=== PATIENT | female | born 1965 | race Caucasian/White ===

== ENCOUNTER 2017-01-13 07:08 | Day surgery (SDC) | payer BC ==
[2017-01-12 10:00] VITALS: BMI 28.3
[~2017-01-13 07:08] MED LIST: DEXAMETHASONE SOD PHOSPHATE 10 MG/ML 1 ML VIAL IV ONE; DEXAMETHASONE SOD PHOSPHATE 4 MG/ML 1 ML VIAL IV ONE; FAMOTIDINE 20 MG/2 ML VIAL IV ONE; HYDROmorphone 1 MG/ML 1 ML SYRINGE IVP PRN; LACTATED RINGERS 1,000 ML IV SCH; ONDANSETRON 4 MG/2 ML VIAL IVP ONE; ceFAZolin 2 GM in SODIUM CHLORIDE 0.9% 100 ML IVPB ONE
[2017-01-13 07:38] VITALS: RESP 16
[2017-01-13] MEDS: OXYMETAZOLINE 0.05% NASL SPRAY 1 SPRAY BOTTLE NASAL ONE ×5 (07:44→08:04)
[2017-01-13] MEDS ORDERED: LIDOCAINE 1% 20 ML VIAL (10MG/ML) FOR IV START INTRADERMA ONE (07:44)
[2017-01-13] MEDS ORDERED: PROPOFOL 10 MG/ML 20 ML VIAL IV ONE (08:23)
[2017-01-13] MEDS ORDERED: SUCCINYLCHOLINE CHLORIDE 100 MG/5 ML SYR IV ONE (08:23)
[2017-01-13] MEDS ORDERED: LIDOCAINE 1% INJ 10MG/ML (20 ML MDV) ONE (08:23)
[2017-01-13] MEDS ORDERED: fentaNYL (PF) 50 MCG/ML 2 ML AMP ONE (08:23)
[2017-01-13] MEDS ORDERED: DEXAMETHASONE SOD PHOS (MDV) 100 MG/10 ML VIAL ONE (08:23)
[2017-01-13] MEDS ORDERED: MIDAZOLAM 2 MG/2 ML VIAL ONE (08:23)
[2017-01-13] MEDS ORDERED: EPINEPHrine 1 MG/ML 1 ML AMP IRRIGATION ONE (08:33)
[2017-01-13] MEDS ORDERED: FLUORESCEIN STRIPS 1 MG STRIP MISCELLANE ONE (08:33)
[2017-01-13] MEDS ORDERED: LIDOCAINE 2%-EPI 1:100,000 20 ML VIAL SQ ONE ×2 (08:34)
[2017-01-13] MEDS ORDERED: LACTATED RINGERS 1,000 ML IV ONE (09:00)
[2017-01-13] MEDS ORDERED: BACITRACIN 500 UNIT/GM OINT 28.4 GM TUBE TOPICAL ONE (09:16)
[2017-01-13] MEDS ORDERED: LABETALOL SYRINGE 5 MG/ML IVP ONE (09:50)
[2017-01-13 09:53] VITALS: TEMP 97.8
--- NOTE | 2017-01-13 10:02 | P.OP ---
Date of Procedure: 01/13/17 Preoperative Diagnosis: Deviated nasal septum Chronic sinusitis, ethmoid, maxillary, sphenoid Postoperative Diagnosis: Same Procedure(s) Performed: Bilateral functional endoscopic sinus surgery, maxillary, ethmoid, sphenoid Septoplasty with stabilization Anesthesia: SANTHOSH Surgeon: Fei Wood Estimated Blood Loss (ml): 15 Pathology: none sent Condition: stable Disposition: PACU Indications for Procedure: This patient presented to the office with a long-standing history of constant sinus problems. She is yellowish-green drainage from her sinuses and his recurring and intermittent facial pain and pressure. CAT scan shows chronic sinusitis of the maxillary sphenoid and ethmoid sinuses. She was found have a deviated nasal septum significant. She been on multiple antibiotics cortisone nasal sprays with no improvement. Operative Findings: Patient had anterior left septal deviation with a left septal deviation at the midportion. Generalized edema and fei pus seen from both ostomy complexes with blockage and diseased tissue throughout Description of Procedure: Preoperatively the patient had her consent reviewed. All risks, benefits, and alternative therapies were discussed and all questions were answered. The patient was informed of the procedure and a confirmatory fashion and was in agreement to proceed forward. In the operating room a timeout was performed and all issues were reviewed with the operating room staff. The patient underwent a general inhalation anesthetic and intubated by the department of anesthesia and also monitored throughout the entire case by the department of anesthesia. A functioning IV line was in place. The patient was positioned in the supine position with slight reverse Trendelenburg. Preoperatively she had Afrin nasal spray. We then injected the septum, lateral nasal wall, turbinates with lidocaine 1% with epinephrine 1 100, 000. Approximately 10 minutes were allowed wait for full vasoconstrictive effects to take place. A caudal incision was made over the caudal portion of the left septum down to the mucoperichondrium. A mucoperichondrial flap was developed with use of tunnels inferiorly and superiorly. We identified the deviation and with use of crosshatching incisions and removal of some redundant strips of septal cartilage , the septum was placed back in the midline in excellent position relieving this patient of this deviated nasal septum. We closed the incision with a 40 rapid Vicryl and a quilting stitch was used to reapproximate the septal flap. The septum was corrected and a swing door type fashion. The septum was sutured fixated to the vomer area and groove with use of a 40 rapid Vicryl. Attention was then paid to the middle turbinates which were brought medial. The uncinate process was visualized and reflected forward with a Silva probe. With the use of an endoscope utilizing 0 30 and 90 we perform this procedure and utilize this endoscope on a video camera throughout the entire procedure. This was with use of a Scruggs chuck scope. We then took down the uncinate process with a pediatric backbiter and a microdebrider. After the uncinate process was removed the maxillary sinuses were opened widely with use of a straight boss. We open the maxillary sinuses widely and into the maxillary sinuses with endoscopic visualization. Diseased tissue was removed from the maxillary sinuses bilaterally and the sinuses were opened bilaterally. After the maxillary sinuses were opened and diseased tissue was removed attention was then paid to the ethmoid bulla. From a medial to lateral position we took down the ethmoid bulla. We identified the roof of the maxillary sinus and the inferior attachment of the superior turbinate and then took down the basal lamella and into the posterior ethmoid air cells. We did a total ethmoidectomy with use of an up-biting boss. Excellent results were obtained. Diseased tissue was found in the ethmoid sinuses and removed. We then entered the sphenoid sinus underneath the inferior attachment of the superior turbinate. The sphenoid sinus was opened with the microdebrider and diseased tissue was removed from each sphenoid sinus. This was also done with use of endoscopic visualization. After all sinuses were opened and all sinuses explored and all sinuses had diseased tissue removed, FloSeal was injected into this region. After the xerogel was placed we then placed a xerogel under each middle turbinate to prevent lateralization. Excellent hemostasis was obtained throughout the entire case and very low blood was noted. The skull base and orbital bhat looked good. We reinspected the sinonasal region and no bleeding was encountered. The patient was then taken to postanesthesia recovery in excellent condition. A follow-up is scheduled for next week. The patient is to contact me if there is any problems or issues.
[2017-01-13 10:56] VITALS: BP 143/86; PULSE 85
== END 2017-01-13 11:30 | disposition home or self-care (01) ==
LOC: OR 07:08
PROVIDERS: ATTEND Otolaryngology
DX: J34.2 Deviated nasal septum (principal); J32.8 Other chronic sinusitis; F32.9 Major depressive disorder, single episode, unspecified; I34.1 Nonrheumatic mitral (valve) prolapse; I73.9 Peripheral vascular disease, unspecified; E78.5 Hyperlipidemia, unspecified; E07.9 Disorder of thyroid, unspecified; F39 Unspecified mood [affective] disorder; Z72.0 Tobacco use; Z79.899 Other long term (current) drug therapy
CPT/HCPCS: 81025; 88305; 88300; 30520; 31267; 31255; 31288; J2250; J0171; J1100 ×2; J0690; J2405; J2001; J3010; J0330; J2704

== ENCOUNTER → 2017-02-10 | Outpatient (CLI) | payer BC ==
--- NOTE | 2017-02-11 07:57 | MM ---
Reason for exam: screening (asymptomatic). Last mammogram was performed 1 year ago. History: Implant in the left breast, 1983. Reduction of the right breast. Took hormonal contraceptives for 15 years beginning at age 18. Physical Findings: A clinical breast exam by your physician is recommended on an annual basis and results should be correlated with mammographic findings. MG Screening Mammo Implant/CAD Bilateral CC and MLO view(s) were taken. ID view(s) were taken of the left breast. Prior study comparison: January 29, 2016, bilateral MG diag mamm implants [facility] w CAD. September 20, 2014, bilateral MG diagnostic mammo w CAD [facility]. There are scattered fibroglandular densities. There are typically benign calcifications in both breasts. There is chronic nodularity in the right breast. No significant changes when compared with prior studies. ASSESSMENT: Benign, BI-RAD 2 RECOMMENDATION: Routine screening mammogram of both breasts in 1 year.
== END | disposition home or self-care (01) ==
LOC: RADMAMWWP 07:36
PROVIDERS: ATTEND Obstetrics & Gynecology
DX: Z12.31 Encounter for screening mammogram for malignant neoplasm of breast (principal)

== ENCOUNTER 2017-10-27 09:40 | Emergency (ER) | payer BC ==
[2017-10-27 09:49] VITALS: BP 177/108; PULSE 104; RESP 20; TEMP 98.2
[2017-10-27] MEDS ORDERED: SODIUM CHLORIDE 0.9% 1,000 ML IV ONE (10:12)
[2017-10-27] MEDS ORDERED: KETOROLAC 30 MG/ML 1 ML VIAL IVP STA (10:15)
--- NOTE | 2017-10-27 10:38 | ED ---
Abdominal Pain HPI - General Chief Complaint: Abdominal Pain Stated Complaint: pelvic pain Time Seen by Provider: 10/27/17 10:09 Source: patient, RN notes reviewed Mode of arrival: ambulatory Limitations: no limitations - History of Present Illness Initial Comments: This a 52-year-old female presents emergency Department chief complaint of right flank pain and right pelvic pain. Patient states that she's had a history kidney stones and this pain feels exactly the same. Patient states that she had a dull acute pain last couple days she's felt that she had a urinary tract infection but developed this point tenths pain today. Patient states that he feels that she needs to urinate but cannot get much out. Denies any nausea, vomiting and diarrhea constipation. Denies any fevers or chills. She's had 2 prior sections no prior hysterectomy. Patient denies any vaginal bleeding or vaginal discharge. - Related Data Home Medications Medication Instructions Recorded Confirmed Atorvastatin [Lipitor] 40 mg PO DAILY 01/12/17 10/27/17 Levothyroxine Sodium [Synthroid] 50 mcg PO DAILY 01/12/17 10/27/17 Venlafaxine HCl [Effexor XR] 225 mg PO DAILY 01/12/17 10/27/17 buPROPion XL [Wellbutrin Xl] 150 mg PO DAILY 01/12/17 10/27/17 Losartan [Cozaar] 25 mg PO DAILY 10/27/17 10/27/17 Previous Rx's Medication Instructions Recorded Ketorolac [Toradol] 10 mg PO Q8HR #15 tab 10/27/17 Allergies Allergy/AdvReac Type Severity Reaction Status Date / Time No Known Allergies Allergy Verified 10/27/17 10:08 Review of Systems ROS Statement: Those systems with pertinent positive or pertinent negative responses have been documented in the HPI. ROS Other: All systems not noted in ROS Statement are negative. Past Medical History Past Medical History: Hyperlipidemia, Mitral Valve Prolapse (MVP), Thyroid Disorder, Vascular Disorder Additional Past Medical History / Comment(s): hx MVP pt states is premedicated prior to procedures, PAD, sinusisits History of Any Multi-Drug Resistant Organisms: None Reported Past Surgical History: Breast Surgery, Section Additional Past Surgical History / Comment(s): breast augmentation with lt breast implant Past Anesthesia/Blood Transfusion Reactions: No Reported Reaction Past Psychological History: Anxiety, Depression Smoking Status: Current every day smoker Past Alcohol Use History: Occasional Past Drug Use History: None Reported - Past Family History Mother Family Medical History: Cancer Additional Family Medical History / Comment(s): uterine cancer General Exam Limitations: no limitations General appearance: alert, in no apparent distress Head exam: Present: atraumatic, normocephalic, normal inspection Respiratory exam: Present: normal lung sounds bilaterally. Absent: respiratory distress, wheezes, rales, rhonchi, stridor, chest wall tenderness Cardiovascular Exam: Present: regular rate, normal rhythm, normal heart sounds. Absent: systolic murmur, diastolic murmur, rubs, gallop, clicks GI/Abdominal exam: Present: soft, tenderness (Mild suprapubic), normal bowel sounds. Absent: distended, guarding, rebound, rigid Back exam: Absent: CVA tenderness (R), CVA tenderness (L) Skin exam: Present: warm, dry, intact, normal color. Absent: rash Course Vital Signs 10/27/17 09:46 Temperature 98.2 F Pulse Rate 104 H Respiratory 20 Rate Blood Pressure 177/108 O2 Sat by Pulse 98 Oximetry Medical Decision Making - Medical Decision Making 52-year-old female presented for pelvic pain, right flank pain. Patient has evidence of hydronephrosis hydroureter most likely recently passed stone. Patient states that he has much improvement systolic he symptoms at this time. Patient was discharged with Toradol and advised to increase her fluids and follow-up with her PCP. She was informed that she has a right ovarian lesion or cyst and she'll follow-up outpatient for this. - Lab Data Result diagrams: 10/27/17 10:05 10/27/17 10:13 Lab Results 10/27/17 10/27/17 10/27/17 Range/Units 10:05 10:13 10:13 WBC 6.8 (3.8-10.6) k/uL RBC 4.45 (3.80-5.40) m/uL Hgb 13.7 (11.4-16.0) gm/dL Hct 42.0 (34.0-46.0) % MCV 94.3 (80.0-100.0) fL MCH 30.7 (25.0-35.0) pg MCHC 32.6 (31.0-37.0) g/dL RDW 13.5 (11.5-15.5) % Plt Count 350 (150-450) k/uL Neutrophils % 68 % Lymphocytes % 23 % Monocytes % 6 % Eosinophils % 1 % Basophils % 0 % Neutrophils # 4.6 (1.3-7.7) k/uL Lymphocytes # 1.5 (1.0-4.8) k/uL Monocytes # 0.4 (0-1.0) k/uL Eosinophils # 0.1 (0-0.7) k/uL Basophils # 0.0 (0-0.2) k/uL Sodium 142 (137-145) mmol/L Potassium 4.4 (3.5-5.1) mmol/L Chloride 105 (98-107) mmol/L Carbon Dioxide 25 (22-30) mmol/L Anion Gap 12 mmol/L BUN 14 (7-17) mg/dL Creatinine 0.60 (0.52-1.04) mg/dL Est GFR (CKD-EPI)AfAm >90 (>60 ml/min/1.73 sqM) Est GFR (CKD-EPI)NonAf >90 (>60 ml/min/1.73 sqM) Glucose 119 H (74-99) mg/dL Calcium 10.4 H (8.4-10.2) mg/dL Total Bilirubin 0.4 (0.2-1.3) mg/dL AST 21 (14-36) U/L ALT 40 (9-52) U/L Alkaline Phosphatase 93 (38-126) U/L Total Protein 7.0 (6.3-8.2) g/dL Albumin 4.5 (3.5-5.0) g/dL Amylase 45 (30-110) U/L Lipase 63 (23-300) U/L Urine Color Yellow Urine Appearance Slightly Cloudy H (Clear) Urine pH 6.0 (5.0-8.0) Ur Specific [place] 1.015 (1.001-1.035) Urine Protein 1+ H (Negative) Urine Glucose (UA) Negative (Negative) Urine Ketones Negative (Negative) Urine Blood Small (Negative) Urine Nitrite Negative (Negative) Urine Bilirubin 2+ H (Negative) Urine Urobilinogen 2.0 (<2.0) mg/dL Ur Leukocyte Esterase Small (Negative) Urine RBC 3 (0-5) /hpf Urine WBC 2 (0-5) /hpf Ur Squamous Epith Cells 2 (0-4) /hpf Urine Bacteria Occasional H (None) /hpf Disposition Clinical Impression: Hydroureter, Hydronephrosis, Kidney stone Disposition: HOME SELF-CARE Condition: Stable Instructions: Kidney Stones (ED) Additional Instructions: Please return to the Emergency Department if symptoms worsen or any other concerns. Prescriptions: Ketorolac [Toradol] 10 mg PO Q8HR #15 tab Is patient prescribed a controlled substance at d/c from ED?: No Referrals: Francois Petit DO [Primary Care Provider] - 1-2 days Time of Disposition: 12:01
[2017-10-27 10:40] LABS: Basophils % (A) 0 %; Eosinophils # (A) 0.1 k/uL (0-0.7); Eosinophils % (A) 1 %; HGB 13.7 gm/dL (11.4-16.0); Lymphocytes # (A) 1.5 k/uL (1.0-4.8); Lymphocytes % (A) 23 %; MCH 30.7 pg (25.0-35.0); MCHC 32.6 g/dL (31.0-37.0); MCV 94.3 fL (80.0-100.0); Mean Platelet Volume 6.9; Monocytes # (A) 0.4 k/uL (0-1.0); Monocytes % (A) 6 %; Neutrophils # (A) 4.6 k/uL (1.3-7.7); Neutrophils % (A) 68 %; Platelet Count 350 k/uL (150-450); RBC 4.45 m/uL (3.80-5.40); RDW 13.5 % (11.5-15.5); WBC 6.8 k/uL (3.8-10.6)
--- NOTE | 2017-10-27 10:40 | XR ---
EXAMINATION TYPE: XR KUB DATE OF EXAM: 10/27/2017 10:35 AM CLINICAL HISTORY: Right-sided abdominal and pelvic pain with history of nephrolithiasis. TECHNIQUE: Single upright image of the abdomen is obtained. COMPARISON: None. FINDINGS: Scattered gas is seen in non-distended small bowel loops. Gas and fecal material is seen in non-distended colon. Overall there is a paucity of abdominal bowel gas. There is no visceromegaly, p neumoperitoneum, or abnormal calcification appreciated. The lung bases are clear and the osseous stru ctures are intact. IMPRESSION: No radiopaque renal calculi are seen. Nonobstructive bowel gas pattern.
[2017-10-27 10:47] LABS: ALT 40 U/L (9-52); AST 21 U/L (14-36); Albumin 4.5 g/dL (3.5-5.0); Alkaline Phosphatase 93 U/L (38-126); Amylase 45 U/L (30-110); Anion Gap 12 mmol/L; Blood Urea Nitrogen 14 mg/dL (7-17); Calcium 10.4 mg/dL (8.4-10.2); Carbon Dioxide 25 mmol/L (22-30); Chloride 105 mmol/L (98-107); Glucose 119 mg/dL (74-99); Lipase 63 U/L (23-300); Potassium 4.4 mmol/L (3.5-5.1); Sodium 142 mmol/L (137-145); Total Bilirubin 0.4 mg/dL (0.2-1.3)
[2017-10-27 10:54] LABS: Appearance,Urine Slightly Cloudy (Clear); Color,Urine Yellow; Specific Gravity,Urine 1.015 (1.001-1.035)
[2017-10-27 10:55] LABS: Glucose,Urine (UA) Negative (Negative); Ketones,Urine Negative (Negative); Protein,Urine 1+ (Negative)
[2017-10-27 10:56] LABS: Bilirubin,Urine 2+ (Negative)
[2017-10-27 10:57] LABS: Blood,Urine Small (Negative); Nitrite,Urine Negative (Negative)
[2017-10-27 10:58] LABS: Leukocyte Esterase,Urine Small (Negative); RBC,Urine 3 /hpf (0-5); Squamous Epithelial Cell,Urine 2 /hpf (0-4); WBC,Urine 2 /hpf (0-5)
[2017-10-27 10:59] LABS: Bacteria,Urine Occasional /hpf
--- NOTE | 2017-10-27 11:52 | CT ---
EXAMINATION TYPE: CT abdomen pelvis wo con DATE OF EXAM: 10/27/2017 COMPARISON: HISTORY: Pelvic and right flank and right lower quadrant pain. CT DLP: 608.9 mGycm Automated exposure control for dose reduction was used. TECHNIQUE: Helical acquisition of images was performed from the lung bases through the pelvis. FINDINGS: LUNG BASES: No significant abnormality is appreciated. Very small hiatal hernia is seen. LIVER/GB: No significant abnormality is appreciated. Cholelithiasis is noted. PANCREAS: No significant abnormality is seen. SPLEEN: No significant abnormality is seen. ADRENALS: There is a fat attenuating low-density 1.4 cm left adrenal gland lesion that could represen t a lipid rich adenoma or myelolipoma. Similarly on the right there is a 1.5 cm low-density lesion of similar etiology. KIDNEYS: There is mild right hydroureteronephrosis with periureteral fat stranding that is mild withi n the distal ureter, however no radiopaque obstructing calculus is seen. Minimal left renal arterial calcifications are seen. No left-sided or right-sided renal calculi are present. FREE AIR: No free air is visualized REPRODUCTIVE ORGANS: Soft tissue density adjacent to the right uterine superior segment is seen on im age 118 measuring 2.5 cm and could represent a pedunculated fibroid or adnexal lesion. URINARY BLADDER: No significant abnormality is seen. ADENOPATHY: No greater than 1 cm short axis lymph node is present within the abdomen or pelvis. OSSEOUS STRUCTURES: No significant abnormality is seen. BOWEL: Bowel is nondilated. Appendix is air-filled and within normal limits. OTHER: There is mild diastases recti is any superimposed small fat filled umbilical hernia. Moderate atherosclerosis is seen of the abdominal aorta and its branches. IMPRESSION: 1. MILD RIGHT HYDROURETERONEPHROSIS WITHOUT RADIOPAQUE OBSTRUCTING CALCULUS. THIS MAY BE DUE TO A REC ENTLY PASSED CALCULUS, NONRADIOPAQUE CALCULUS, OR LESS LIKELY AN OBSTRUCTING URETERAL MASS. 2. RIGHT ADNEXAL 2.5 CM SOFT TISSUE LESION THAT MAY REPRESENT AN EXOPHYTIC LEIOMYOMA RIGHT OVARIAN LE KAREN. THIS COULD BE FURTHER CHARACTERIZED WITH PELVIC ULTRASOUND. 3. CHOLELITHIASIS. 4. BENIGN BILATERAL ADRENAL GLAND LESIONS.
== END 2017-10-27 12:16 | disposition home or self-care (01) ==
LOC: EC 09:40
DX: N13.2 Hydronephrosis with renal and ureteral calculous obstruction (principal); N13.4 Hydroureter; E78.5 Hyperlipidemia, unspecified; E07.9 Disorder of thyroid, unspecified; F32.9 Major depressive disorder, single episode, unspecified; F41.9 Anxiety disorder, unspecified; F17.200 Nicotine dependence, unspecified, uncomplicated; Z79.899 Other long term (current) drug therapy
CPT/HCPCS: 36415; 80053; 82150; 83690; 85025; 81001; 74018; 74176; 99284; 96374; 96361 ×2; J1885

== ENCOUNTER → 2017-11-28 | Outpatient (CLI) | payer BC ==
--- NOTE | 2017-11-28 17:58 | US ---
EXAMINATION TYPE: US pelvis complete transvag DATE OF EXAM: 11/28/2017 COMPARISON: Correlation CT 10/27/2017 CLINICAL HISTORY: 52-year-old female R10.2 PELVIC PAIN. Follow up from recent CT, 2 prior c-sections TECHNIQUE: Transabdominal sonographic images of the pelvis were acquired. Transvaginal sonographic i mages were medically necessary to better assess the following anatomy: ovaries Date of LMP: 2 years ago FINDINGS: EXAM MEASUREMENTS: Uterus: 9.3 x 2.8 x 6.2 cm Endometrial Stripe: 0.5 cm Right Ovary: unable to visualize Left Ovary: unable to visualize 1. Uterus: scar noted. Anteverted. Cervical nabothian cysts are present measuring up to 9 mm. Left uterine body focal fibroid measuring 2.2 cm. 2. Endometrium: Punctate echogenic areas either adjacent to or within the endometrium. 3. Right Ovary: not visualized with certainty 4. Left Ovary: Obscured by overlying bowel gas 5. Bilateral Adnexa: hypoechoic shadowing area right adnexa = 1.9 x 1.9 x 2.6cm adjacent to uterus,, possible subserosal pedunculated fibroid. 6. Posterior cul-de-sac: wnl IMPRESSION: 1. Shadowing 2.6 cm lesion in the right adnexa adjacent to the uterus. Differential considerations re main a subserosal pedunculated fibroid versus right ovarian lesion such as a stromal ovarian neoplasm or solid Selene tumor. Consider six-month follow-up ultrasound versus further characterization with female pelvic MRI. 2. A 2.2 cm left uterine body focal fibroid. 3. Neither ovary could be discretely visualized.
== END | disposition home or self-care (01) ==
LOC: RADUSWWP 13:27
PROVIDERS: ATTEND Obstetrics & Gynecology
DX: D25.9 Leiomyoma of uterus, unspecified (principal); N85.9 Noninflammatory disorder of uterus, unspecified
CPT/HCPCS: 76830; 76856

== ENCOUNTER → 2017-12-17 | Outpatient (CLI) | payer BC ==
--- NOTE | 2017-12-21 23:08 | MR ---
MR pelvis with and without contrast HISTORY: Leiomyoma, neoplasm Multiplanar multisequence and postcontrast images obtained through the pelvis 57.5 cc Gadavist IV and correlated to CT abdomen pelvis 10/27/2017, ultrasound pelvis 11/28/2017 There is a right adnexal mass corresponding to previously described abnormality on CT and ultrasound which shows isointense signal on T1-weighted images, low signal on T2-weighted sequences with some ce ntral increased signal, enhancement following contrast administration is mildly heterogeneous. The le darin measures approximately 3.3 x 2.5 x 2.3 cm in size. The lesion is well defined. Uterus shows probable nabothian cysts as noted on ultrasound. There is a fibroid present at the fundu s caudally measuring approximately 12 mm in size. IMPRESSION: Findings could possibly represent a dermoid. CT findings are not classic however.
== END | disposition home or self-care (01) ==
LOC: RADMRIMAIN 12:19
PROVIDERS: ATTEND Obstetrics & Gynecology
DX: D49.59 Neoplasm of unspecified behavior of other genitourinary organ (principal); D25.9 Leiomyoma of uterus, unspecified
CPT/HCPCS: 82565; 72197; 36415; A9581

== ENCOUNTER → 2017-12-22 | Outpatient (CLI) | payer BC | END | disposition home or self-care (01) | LOC: LABWHC1 17:11 | PROVIDERS: ATTEND Obstetrics & Gynecology | DX: N83.209 Unspecified ovarian cyst, unspecified side (principal) | CPT/HCPCS: 36415; 86304 ==

== ENCOUNTER → 2017-12-29 | Outpatient (CLI) | payer BC ==
[2017-12-29 09:20] LABS: Basophils % (A) 1 %; Eosinophils # (A) 0.1 k/uL (0-0.7); Eosinophils % (A) 1 %; HCT 42.8 % (34.0-46.0); HGB 13.4 gm/dL (11.4-16.0); Lymphocytes # (A) 1.1 k/uL (1.0-4.8); Lymphocytes % (A) 17 %; MCH 30.7 pg (25.0-35.0); MCHC 31.3 g/dL (31.0-37.0); MCV 97.9 fL (80.0-100.0); Mean Platelet Volume 6.6; Monocytes # (A) 0.3 k/uL (0-1.0); Monocytes % (A) 5 %; Neutrophils # (A) 4.7 k/uL (1.3-7.7); Neutrophils % (A) 75 %; Platelet Count 300 k/uL (150-450); RBC 4.37 m/uL (3.80-5.40); RDW 13.4 % (11.5-15.5); WBC 6.2 k/uL (3.8-10.6)
[2017-12-29 09:39] LABS: Anion Gap 9 mmol/L; Blood Urea Nitrogen 15 mg/dL (7-17); Calcium 10.3 mg/dL (8.4-10.2); Carbon Dioxide 28 mmol/L (22-30); Chloride 102 mmol/L (98-107); Glucose 163 mg/dL (74-99); Potassium 4.5 mmol/L (3.5-5.1); Sodium 139 mmol/L (137-145)
== END | disposition home or self-care (01) ==
LOC: LABPAT 08:40
PROVIDERS: ATTEND Obstetrics & Gynecology
DX: Z01.812 Encounter for preprocedural laboratory examination (principal); Z01.818 Encounter for other preprocedural examination
CPT/HCPCS: 36415; 80048; 85025; 93005

== ENCOUNTER 2018-01-03 05:55 | Inpatient (IN) | payer BC ==
[2018-01-02 09:10] VITALS: BMI 29.1
--- NOTE | 2018-01-02 18:41 | P.HPOB ---
History of Present Illness H&P Date: 01/02/18 Chief Complaint: Right adnexal mass, uterine leiomyoma This is a 52-year-old female 2 para 2 who presents for total abdominal hysterectomy with bilateral salpingo-oophorectomy and pelvic washings secondary to a right adnexal mass noted on ultrasound, computed tomography scan, and MRI. The patient initially presented to the emergency room in early October for pain and was noted to have a kidney stone. She did pass that stone and her pain went away. There was also noted an incidental finding of an ovarian cyst at that time. She underwent a pelvic ultrasound that showed a uterus measuring 9.3 x 2.8 x 6.2 cm with an endometrial stripe thickness of 0.5 cm. Neither ovary was well visualized however there was shadowing in the right adnexa measuring 1.9 x 1.9 x 2.6 cm adjacent to the uterus. Radiology could not rule out a pedunculated fibroid in the right adnexa. There was also noted to be a 2.2 cm left uterine body fibroid. Pelvic computed tomography scan showed a soft tissue density adjacent to the right uterine superior segment, possible pedunculated fibroid or adnexal mass measuring 2.5 cm. Her pelvic MRI showed a possible dermoid in the right adnexal region measuring up to 3.3 cm area she did undergo a CA-125 that came back at 7.7 cm. We had a long discussion in the office regarding treatment options. She was offered laparoscopy versus total abdominal hysterectomy with bilateral salpingo-oophorectomy versus referral to [facility]. She wished to proceed with total abdominal hysterectomy with bilateral salpingo-oophorectomy with pelvic washings. Obstetrical history: . History of 2 deliveries. Gynecologic history: No history of sexual transmitted diseases. Her has had a vasectomy. She is currently menopausal and has not had any regular periods since 2016. Social history: She is . She works as a counselor. Review of Systems Constitutional: Reports night sweats, Denies chills, Denies fever Eyes: denies blurred vision, denies pain Ears, nose, mouth and throat: Denies headache, Denies sore throat Cardiovascular: Denies chest pain, Denies shortness of breath Respiratory: Denies cough Gastrointestinal: Denies abdominal pain, Denies diarrhea, Denies nausea, Denies vomiting Genitourinary: Reports kidney stones, Reports stress incontinence Menstruation: Reports postmenopausal Musculoskeletal: Reports muscle weakness (Legs) Integumentary: Denies pruritus, Denies rash Neurological: Reports weakness, Denies numbness Psychiatric: Reports anxiety, Reports depression Endocrine: Reports flushing Past Medical History Past Medical History: Hyperlipidemia, Hypertension, Mitral Valve Prolapse (MVP) , Thyroid Disorder, Vascular Disorder Additional Past Medical History / Comment(s): hx MVP pt states is premedicated prior to procedures, PAD History of Any Multi-Drug Resistant Organisms: None Reported Past Surgical History: Breast Surgery, Section Additional Past Surgical History / Comment(s): breast augmentation with lt breast implant, sinus surg. Past Anesthesia/Blood Transfusion Reactions: No Reported Reaction Past Psychological History: Anxiety, Depression Smoking Status: Current every day smoker Past Alcohol Use History: Occasional Past Drug Use History: None Reported - Past Family History Mother Family Medical History: Cancer Additional Family Medical History / Comment(s): uterine cancer Medications and Allergies Home Medications Medication Instructions Recorded Confirmed Type Atorvastatin [Lipitor] 40 mg PO DAILY 01/12/17 01/02/18 History Levothyroxine Sodium [Synthroid] 50 mcg PO DAILY 01/12/17 01/02/18 History Venlafaxine HCl [Effexor XR] 225 mg PO DAILY 01/12/17 01/02/18 History buPROPion XL [Wellbutrin Xl] 150 mg PO DAILY 01/12/17 01/02/18 History Losartan [Cozaar] 25 mg PO DAILY 10/27/17 01/02/18 History Allergies Allergy/AdvReac Type Severity Reaction Status Date / Time No Known Allergies Allergy Verified 01/02/18 09:05 Exam Osteopathic Statement: *. No significant issues noted on an osteopathic structural exam other than those noted in the History and Physical/Consult. Intake and Output 01/02/18 01/02/18 01/02/18 06:59 14:59 22:59 Other: Weight 79.379 kg HEENT: Within normal limits Heart: Regular rate and rhythm Lungs: Clear to auscultation bilaterally Abdomen: Soft, nontender Pelvic exam: Uterus is smooth, nontender, with no adnexal masses or tenderness noted. Extremities: Negative Homans Assessment and Plan (1) Ovarian mass, right Status: Acute Code(s): N83.9 - NONINFLAMMATORY DISORD OF OVARY, FALLOP & BROAD LIGMT, UNSP SNOMED Code(s): 892443849 (2) Leiomyoma of body of uterus Status: Acute Code(s): D25.9 - LEIOMYOMA OF UTERUS, UNSPECIFIED SNOMED Code( s): 25510484 Plan: Proceed with total abdominal hysterectomy with bilateral salpingo-oophorectomy and pelvic washings. I have discussed the risks, benefits, and alternative therapies for the above- mentioned procedure and for both sedation/anesthesia as well as necessary blood products administration, if indicated, as they pertain to this patient. The patient has indicated her understanding and acceptance of the risks and procedures discussed.
[~2018-01-03 05:55] MED LIST changes: -DEXAMETHASONE SOD PHOSPHATE 10 MG/ML 1 ML VIAL IV ONE; -DEXAMETHASONE SOD PHOSPHATE 4 MG/ML 1 ML VIAL IV ONE; -FAMOTIDINE 20 MG/2 ML VIAL IV ONE; +HYDROmorphone 0.5 MG/0.5 ML SYRINGE IVP PRN; -HYDROmorphone 1 MG/ML 1 ML SYRINGE IVP PRN; -LACTATED RINGERS 1,000 ML IV SCH; +MIDAZOLAM 2 MG/2 ML VIAL IV PRN; -ONDANSETRON 4 MG/2 ML VIAL IVP ONE; -ceFAZolin 2 GM in SODIUM CHLORIDE 0.9% 100 ML IVPB ONE; +ceFAZolin IN SWFI 2 GM/20 ML SYRINGE IVP ONE
[2018-01-03] MEDS ORDERED: LIDOCAINE 1% 20 ML VIAL (10MG/ML) FOR IV START INTRADERMA ONE (06:35)
[2018-01-03] MEDS: LACTATED RINGERS 1,000 ML IV SCH ×3 (06:38→15:42)
[2018-01-03] MEDS: ONDANSETRON 4 MG/2 ML VIAL IVP ONE ×3 (06:48→18:50)
[2018-01-03] MEDS: DEXAMETHASONE SOD PHOSPHATE 10 MG/ML 1 ML VIAL IV ONE ×2 (06:48→18:51)
[2018-01-03] MEDS ORDERED: fentaNYL (PF) 50 MCG/ML 2 ML AMP IVP ONE (07:10)
[2018-01-03] MEDS ORDERED: MIDAZOLAM 2 MG/2 ML VIAL IVP ONE (07:10)
[2018-01-03] MEDS ORDERED: fentaNYL (PF) 50 MCG/ML 2 ML AMP ONE (07:35)
[2018-01-03] MEDS ORDERED: NEOSTIGMINE 1 MG/ML 10 ML VIAL ONE (07:35)
[2018-01-03] MEDS ORDERED: PROPOFOL 10 MG/ML 20 ML VIAL IV ONE (07:35)
[2018-01-03] MEDS ORDERED: MIDAZOLAM 2 MG/2 ML VIAL ONE (07:35)
[2018-01-03] MEDS ORDERED: ROCURONIUM BROMIDE 10 MG/ML 10 ML VIAL IV ONE (07:35)
[2018-01-03] MEDS ORDERED: GLYCOPYRROLATE 0.2 MG/ML 2 ML VIAL ONE (07:35)
[2018-01-03] MEDS ORDERED: PHENYLEPHRINE-0.9% NACL SYG 1 MG/10 ML SYRINGE ONE (07:35)
[2018-01-03] MEDS ORDERED: LIDOCAINE 1% INJ 10MG/ML (20 ML MDV) ONE (07:35)
[2018-01-03] MEDS ORDERED: LACTATED RINGERS 1,000 ML IV ONE (08:34)
--- NOTE | 2018-01-03 08:57 | P.OP ---
Date of Procedure: 01/03/18 Preoperative Diagnosis: Right adnexal mass Uterine fibroids Postoperative Diagnosis: Same Procedure(s) Performed: Total abdominal hysterectomy with bilateral salpingo-oophorectomy and pelvic washings Anesthesia: GETA, epidural Surgeon: Marely Mendoza Drapery Hemmer Automatic #1: Karen Degroot Estimated Blood Loss (ml): 30 Pathology: other (Pelvic washings, uterus with bilateral tubes and ovaries and cervix) Condition: stable Disposition: floor Indications for Procedure: This is a 52-year-old female 2 para 2 who presents for total abdominal hysterectomy with bilateral salpingo-oophorectomy and pelvic washings secondary to a right adnexal mass noted on ultrasound, computed tomography scan, and MRI. The patient initially presented to the emergency room in early October for pain and was noted to have a kidney stone. She did pass that stone and her pain went away. There was also noted an incidental finding of an ovarian cyst at that time. She underwent a pelvic ultrasound that showed a uterus measuring 9.3 x 2.8 x 6.2 cm with an endometrial stripe thickness of 0.5 cm. Neither ovary was well visualized however there was shadowing in the right adnexa measuring 1.9 x 1.9 x 2.6 cm adjacent to the uterus. Radiology could not rule out a pedunculated fibroid in the right adnexa. There was also noted to be a 2.2 cm left uterine body fibroid. Pelvic computed tomography scan showed a soft tissue density adjacent to the right uterine superior segment, possible pedunculated fibroid or adnexal mass measuring 2.5 cm. Her pelvic MRI showed a possible dermoid in the right adnexal region measuring up to 3.3 cm area she did undergo a CA-125 that came back at 7.7 cm. We had a long discussion in the office regarding treatment options. She was offered laparoscopy versus total abdominal hysterectomy with bilateral salpingo-oophorectomy versus referral to [facility] onc[facility]. She wished to proceed with total abdominal hysterectomy with bilateral salpingo-oophorectomy with pelvic washings. Operative Findings: Uterus is very small with a small fibroid noted on the left anterior wall. There is noted to be a fibrous area next to the right ovary approximately 3 cm that could be either a questionable fibroma versus pedunculated uterine fibroid. Normal-appearing ovaries are noted bilaterally. Description of Procedure: The patient is taken to the operating room where she is placed in the dorsal supine position. She is prepped and draped in the normal sterile fashion including Nance catheter insertion and vaginal prep. A Pfannenstiel skin incision is made with a scalpel. A second knife was used to carry the incision down to the underlying layer of fascia. The fascia was nicked in the midline with a scalpel and then extended laterally bilaterally with Woods scissors. The superior aspect of the fascial incision was grasped with Kaiden clamps, elevated off the underlying rectus muscle in the midline and then cut with Woods scissors. The inferior aspect of the fascial incision was grasped with Kaiden clamps, elevated off the underlying rectus muscle in the midline and then cut with Woods scissors. Next the peritoneum was identified and entered sharply with Woods scissors. It is extended superiorly and in fairly with Metzenbaum scissors with good visualization of underlying structures. Next the Norfolk retractor is placed in the bladder blade was inserted. A small amount of saline is then poured into the pelvis and a Lukey tube is used to obtain pelvic washings. The bowels were packed with a 3 yard laparotomy sponge. Next the uterus is brought up incision and the corneal regions are grasped with Jaylyn clamps on both sides. The above noted findings are made. The infundibulopelvic ligament was clamped on either side with a Santa clamp, cut with Woods scissors, and sutured with 0 Vicryl suture in Santa transfixion stitches. The remaining uterine ovarian ligament and round ligament was clamped on either side with a Santa clamp, cut with Woods scissors, and sutured with 0 Vicryl suture in Santa transfixion stitches. The vesicouterine peritoneum was sharply dissected away from the bladder with Metzenbaum scissors and pushed inferiorly. The uterine arteries are clamped on either side with a Santa clamp. The uterine arteries are then cut with Woods scissors, and sutured with 0 Vicryl suture in Santa transfixion stitches. Next the cardinal ligaments were clamped on either side with Santa clamp, cut with Woods scissors , and sutured with 0 Vicryl suture in Santa transfixion stitches. The uterosacral ligaments are clamped on either side with Santa clamps, cut with Woods scissors, and sutured with 0 Vicryl suture in Santa transfixion stitches on either side. The edges of the vaginal cuff were clamped on either side with a Santa clamp, cut with Woods scissors, and sutured with 0 Vicryl suture in Santa transfixion stitches and held on either side. The vaginal mucosa was then cut just below the level of the cervix and the specimen is removed from the field. The edges of the vaginal cuff were held with Kaiden clamps. Next the previously held corners of each side of the vaginal cuff were then whipstitched along the connective tissue on either side and brought through the corner of the cuff and tied. Next the vaginal cuff was sutured with 0 Vicryl suture in a running locked fashion. Good hemostasis was noted. Copious irrigation is carried out with warm saline. Excellent hemostasis is noted. All sponges are removed from the abdomen and sponge counts are correct. The peritoneum is then closed with 0 Vicryl suture in a running fashion. The muscle was then reapproximated with 0 Vicryl suture in interrupted fashion. The fascia layer is then closed with 0 PDS suture in a running fashion with the knots buried on either side and in the midline. Next the subcutaneous tissues closed with 2-0 Vicryl suture in a running fashion. The skin is closed with arlyn. All sponge and needle counts are correct and the patient is taken to recovery room in stable condition.
[2018-01-03] MEDS ORDERED: ROPIVACAINE 400 MG, fentaNYL (PF) 625 MCG in SODIUM CHLORIDE 0.9% 158 ML EPIDURAL PRN (09:23)
[2018-01-03] MEDS ORDERED: NALOXONE 0.4 MG/ML 1 ML VIAL IV PRN (09:23)
[2018-01-03] MEDS ORDERED: KETOROLAC 30 MG/ML 1 ML VIAL IVP ONE (09:42)
[2018-01-03] MEDS ORDERED: METOCLOPRAMIDE 5 MG/ML 2 ML VIAL IVP PRN (10:35)
[2018-01-03] MEDS ORDERED: ZOLPIDEM 5 MG TAB PO PRN (10:35)
[2018-01-03] MEDS ORDERED: ONDANSETRON 4 MG/2 ML VIAL IVP PRN (10:35)
[2018-01-03] MEDS ORDERED: diphenhydrAMINE 50 MG/ML 1 ML VIAL IVP PRN (10:35)
[2018-01-03] MEDS: LOSARTAN 25 MG TAB PO SCH (11:21)
[2018-01-03] MEDS: buPROPion XL 150 MG TAB.ER.24H PO SCH (11:21)
[2018-01-03] MEDS: ATORVASTATIN 40 MG TAB PO SCH (11:21)
[2018-01-03] MEDS: LEVOTHYROXINE 50 MCG TAB PO SCH (11:21)
[2018-01-03] MEDS: VENLAFAXINE HCL ER 75 MG CAP PO SCH (11:22)
[2018-01-03] MEDS: NICOTINE 21MG/24HR PATCH TRANSDERM SCH ×2 (17:12→17:13)
[2018-01-03] MEDS: SENNOSIDES-DOCUSATE SODIUM 1 EACH TAB PO SCH ×2 (18:51→20:34)
[2018-01-03] MEDS: KETOROLAC 30 MG/ML 1 ML VIAL IVP PRN (21:34)
[2018-01-04] MEDS: KETOROLAC 30 MG/ML 1 ML VIAL IVP PRN (03:03)
[2018-01-04] MEDS: LEVOTHYROXINE 50 MCG TAB PO SCH (05:32)
--- NOTE | 2018-01-04 05:53 | P.PN ---
Progress Note - Text Progress Note Date: 01/04/18 he patient had thoracic epidural catheter placement for postoperative pain control. Postop day #( 1 ), status post hysterectomy . The patient is doing well. The pain is well controlled. Patient denies any weakness or paresthesia in the lower extremities.,and any back pain. There are no signs of infection around the epidural catheter skin entry site. We will continue the epidural infusion of local anesthetics as per protocol.
[2018-01-04] MEDS ORDERED: ACETAMINOPHEN TAB 325 MG TAB PO PRN (07:44)
[2018-01-04] MEDS: SENNOSIDES-DOCUSATE SODIUM 1 EACH TAB PO SCH ×2 (08:53→21:07)
[2018-01-04] MEDS: ATORVASTATIN 40 MG TAB PO SCH (08:54)
[2018-01-04] MEDS: buPROPion XL 150 MG TAB.ER.24H PO SCH (08:54)
[2018-01-04] MEDS: LOSARTAN 25 MG TAB PO SCH (08:55)
[2018-01-04] MEDS: VENLAFAXINE HCL ER 75 MG CAP PO SCH (08:55)
[2018-01-04] MEDS ORDERED: HYDROcodone/APAP 7.5-325MG 1 EACH TAB PO PRN (09:01)
[2018-01-04] MEDS: IBUPROFEN 600 MG TAB PO PRN ×3 (09:03→21:07)
[2018-01-04 09:04] LABS: Basophils % (A) 0 %; Eosinophils # (A) 0.1 k/uL (0-0.7); Eosinophils % (A) 1 %; HGB 11.1 gm/dL (11.4-16.0); Lymphocytes # (A) 1.3 k/uL (1.0-4.8); Lymphocytes % (A) 19 %; MCH 30.3 pg (25.0-35.0); MCHC 30.8 g/dL (31.0-37.0); MCV 98.4 fL (80.0-100.0); Mean Platelet Volume 6.5; Monocytes # (A) 0.3 k/uL (0-1.0); Monocytes % (A) 4 %; Neutrophils # (A) 5.2 k/uL (1.3-7.7); Neutrophils % (A) 75 %; Platelet Count 261 k/uL (150-450); RBC 3.66 m/uL (3.80-5.40); RDW 13.8 % (11.5-15.5); WBC 6.9 k/uL (3.8-10.6)
--- NOTE | 2018-01-04 09:05 | P.PN ---
Subjective Progress Note Date: 01/04/18 Principal diagnosis: Status post NELLY/BSO postoperative day #1 Patient is doing well. Her pain is fairly well controlled with epidural. She has been ambulating. She is passing some flatus but no bowel movement yet she has been unable to urinate yet this morning. Objective - Vital Signs Vital signs: Vital Signs Temp 98.4 F 01/04/18 07:49 Pulse 76 01/04/18 07:49 Resp 18 01/04/18 07:49 BP 117/65 01/04/18 07:49 Pulse Ox 97 01/04/18 07:49 Intake & Output 01/03/18 01/04/18 01/04/18 18:59 06:59 18:59 Intake Total 1600 Output Total 230 1000 Balance 1370 -1000 Weight 79.379 kg Intake: IV 1600 Output: Urine 200 1000 Uretheral (Nance) 1000 Estimated Blood Loss 30 - Constitutional General appearance: Present: no acute distress - Gastrointestinal Gastrointestinal Comment(s): Incision clean dry and intact with arlyn in place. General gastrointestinal: Present: normal bowel sounds - Musculoskeletal Musculoskeletal Comment(s): Extremities: Negative Homans Assessment and Plan Assessment: Impression is status post total abdominal hysterectomy with bilateral salpingo- oophorectomy postoperative day #1. (1) Ovarian mass, right Current Visit: No Status: Acute Code(s): N83.9 - NONINFLAMMATORY DISORD OF OVARY, FALLOP & BROAD LIGMT, UNSP SNOMED Code(s): 376070721 (2) Leiomyoma of body of uterus Current Visit: No Status: Acute Code(s): D25.9 - LEIOMYOMA OF UTERUS, UNSPECIFIED SNOMED Code(s): 11168177 Plan: Continue with postoperative care. Will discontinue epidural and switched oral pain medication today. Advance diet as tolerated.
[2018-01-04] MEDS: HYDROcodone/APAP 5-325MG 1 EACH TAB PO PRN ×2 (11:09→18:21)
[2018-01-04] MEDS: SIMETHICONE 80 MG CHEWABLE PO PRN ×2 (13:26→21:10)
[2018-01-04] MEDS: NICOTINE 21MG/24HR PATCH TRANSDERM SCH (17:22)
[2018-01-05] MEDS: HYDROcodone/APAP 5-325MG 1 EACH TAB PO PRN ×3 (00:41→12:03)
[2018-01-05] MEDS: IBUPROFEN 600 MG TAB PO PRN ×2 (03:10→09:12)
[2018-01-05] MEDS: LEVOTHYROXINE 50 MCG TAB PO SCH (06:22)
[2018-01-05 07:54] VITALS: TEMP 98.2
--- NOTE | 2018-01-05 09:01 | P.DS ---
Providers Date of admission: 01/03/18 05:55 Expected date of discharge: 01/05/18 Attending physician: Marely Mendoza Primary care physician: Francois Petit - Discharge Diagnosis(es) (1) Ovarian mass, right Current Visit: No Status: Acute (2) Leiomyoma of body of uterus Current Visit: No Status: Acute Hospital Course: This is a 52-year-old female who underwent total abdominal hysterectomy with bilateral septal oophorectomy and pelvic washings on 01/03/2018. Her post operative course was essentially uncomplicated. She initially had an epidural for pain control and this was switched to ibuprofen and [place] and it is controlling her pain well. She is passing flatus but no bowel movement yet. She is urinating without difficulty. Vaginal bleeding is very minimal. Vital signs are stable. Abdomen is soft with positive bowel sounds 4. Incision is clean dry and intact. Extremities show negative Homans. Impression is status post NELLY/BSO postoperative day #2. Plan is to discharge home today. Routine postoperative instructions are given. She is advised to follow up in the office in approximately 1 week for a postoperative check. She was counseled on opioid medications and did sign the start taking opioid form. Maps was checked. She will be given prescriptions for ibuprofen and [place]. She is advised to call the office if she has any further questions or concerns prior to her appointment time. Procedures: Total abdominal hysterectomy with bilateral salpingo-oophorectomy and pelvic washings on 01/03/2018 Patient Condition at Discharge: Stable Plan - Discharge Summary Discharge Rx Participant: No New Discharge Prescriptions: New HYDROcodone/APAP 5-325MG [[place] 5-325] 1 each PO Q4HR PRN #28 tab PRN Reason: Moderate Pain Ibuprofen [Motrin] 600 mg PO Q6HR PRN #60 tab PRN Reason: Mild Discomfort Continue buPROPion XL [Wellbutrin XL] 150 mg PO DAILY Levothyroxine Sodium [Synthroid] 50 mcg PO DAILY Venlafaxine HCl [Effexor XR] 225 mg PO DAILY Atorvastatin [Lipitor] 40 mg PO DAILY Losartan [Cozaar] 25 mg PO DAILY Discharge Medication List Atorvastatin [Lipitor] 40 mg PO DAILY 01/12/17 [History] Levothyroxine Sodium [Synthroid] 50 mcg PO DAILY 01/12/17 [History] Venlafaxine HCl [Effexor XR] 225 mg PO DAILY 01/12/17 [History] buPROPion XL [Wellbutrin XL] 150 mg PO DAILY 01/12/17 [History] Losartan [Cozaar] 25 mg PO DAILY 10/27/17 [History] HYDROcodone/APAP 5-325MG [[place] 5-325] 1 each PO Q4HR PRN #28 tab 01/05/18 [Rx] Ibuprofen [Motrin] 600 mg PO Q6HR PRN #60 tab 01/05/18 [Rx] Follow up Appointment(s)/Referral(s): Marely Mendoza DO [Doctor of Osteopathic Medicine] - 1 Week Activity/Diet/Wound Care/Special Instructions: Diet as tolerated. Activity as tolerated. May shower, but no tub baths for 1 week. No lifting, bending, stooping. No driving until off of narcotic pain medication. No intercourse. Discharge Disposition: HOME SELF-CARE
[2018-01-05] MEDS: buPROPion XL 150 MG TAB.ER.24H PO SCH (09:12)
[2018-01-05] MEDS: SENNOSIDES-DOCUSATE SODIUM 1 EACH TAB PO SCH (09:12)
[2018-01-05] MEDS: NICOTINE 21MG/24HR PATCH TRANSDERM SCH (09:13)
[2018-01-05] MEDS: ATORVASTATIN 40 MG TAB PO SCH (09:13)
[2018-01-05] MEDS: VENLAFAXINE HCL ER 75 MG CAP PO SCH (09:13)
[2018-01-05] MEDS: LOSARTAN 25 MG TAB PO SCH (09:13)
[2018-01-05 12:34] VITALS: BP 152/90; PULSE 70; RESP 16
== END 2018-01-05 12:15 | disposition home or self-care (01) | DRG 743 ==
LOC: 2ORMAIN 05:55 → 4FBP 08:56
PROVIDERS: ADMIT Obstetrics & Gynecology; ATTEND Obstetrics & Gynecology
PROC: 0UT20ZZ Resection of Bilateral Ovaries, Open Approach (ICD-10-PCS; 2018-01-03)
PROC: 0UT70ZZ Resection of Bilateral Fallopian Tubes, Open Approach (ICD-10-PCS; 2018-01-03)
PROC: 3E1M38Z Irrigation of Peritoneal Cavity using Irrigating Substance, Percutaneous Approach (ICD-10-PCS; 2018-01-03)
PROC: 0UT90ZZ Resection of Uterus, Open Approach (ICD-10-PCS; principal; 2018-01-03 07:30)
DX: N83.9 Noninflammatory disorder of ovary, fallopian tube and broad ligament, unspecified (principal); D25.9 Leiomyoma of uterus, unspecified; K21.9 Gastro-esophageal reflux disease without esophagitis; E78.5 Hyperlipidemia, unspecified; F17.210 Nicotine dependence, cigarettes, uncomplicated; F32.9 Major depressive disorder, single episode, unspecified; F41.9 Anxiety disorder, unspecified; I10 Essential (primary) hypertension; I34.1 Nonrheumatic mitral (valve) prolapse; E07.9 Disorder of thyroid, unspecified; I73.9 Peripheral vascular disease, unspecified; Z87.442 Personal history of urinary calculi; Z98.82 Breast implant status; Z79.890 Hormone replacement therapy; Z79.899 Other long term (current) drug therapy; Z80.49 Family history of malignant neoplasm of other genital organs
CPT/HCPCS: 85025; 86850; 86900; 86901; 88108; 88305

== ENCOUNTER → 2018-02-14 | Outpatient (CLI) | payer BC ==
--- NOTE | 2018-02-15 12:41 | MM ---
Reason for exam: screening (asymptomatic). Last mammogram was performed 1 year ago. History: Patient is postmenopausal. Implant in the left breast, 1983. Reduction of the right breast. Took hormonal contraceptives for 15 years beginning at age 18. Physical Findings: A clinical breast exam by your physician is recommended on an annual basis and results should be correlated with mammographic findings. MG Screening Mammo Implant/CAD Bilateral CC and MLO view(s) were taken. ID view(s) were taken of the left breast. Prior study comparison: February 10, 2017, bilateral MG screening mammo implant/CAD. January 29, 2016, bilateral MG diag mamm implants MONTEZ w CAD. There are scattered fibroglandular densities. No significant changes when compared with prior studies. ASSESSMENT: Benign, BI-RAD 2 RECOMMENDATION: Routine screening mammogram of both breasts in 1 year.
== END ==
LOC: RADMAMWWP 08:14
PROVIDERS: ATTEND Obstetrics & Gynecology
DX: Z12.31 Encounter for screening mammogram for malignant neoplasm of breast (principal)
CPT/HCPCS: 77067

== ENCOUNTER → 2018-06-02 | Outpatient (CLI) | payer BC ==
--- NOTE | 2018-06-02 14:43 | XR ---
EXAMINATION TYPE: XR foot complete LT DATE OF EXAM: 06/02/2018 CLINICAL HISTORY: Left foot pain into third toe. TECHNIQUE: Frontal, lateral, and oblique images of the left foot are obtained. COMPARISON: None FINDINGS: There is no acute fracture/dislocation evident in the left foot with particular attention to left third toe at area of clinical concern. The joint spaces in the left foot appear within yesi l limits. The overlying soft tissue appears unremarkable. IMPRESSION: There is no acute fracture or dislocation in the left foot.
== END | disposition home or self-care (01) ==
LOC: RADXRYALE 14:09
PROVIDERS: ATTEND Physician Assistant Medical
DX: M79.672 Pain in left foot (principal)

== ENCOUNTER → 2019-04-05 | Outpatient (CLI) | payer OTHER ==
--- NOTE | 2019-04-05 13:58 | BD ---
EXAMINATION TYPE: Axial Bone Density DATE OF EXAM: 04/05/2019 COMPARISON: NONE CLINICAL HISTORY: 53 YR OLD FEMALE....ICD-10 CODE: N95.1 POST MENOPAUSAL SYMPTOMS Height: 64 Weight: 164 FRAX RISK QUESTIONS: Current Tobacco Use: YES RISK FACTORS HISTORY OF: Postmenopausal woman: YES, TOTAL HYST AT 50 YRS OLD BCPs IN THE PAST FOR ABOUT 15 YRS Hyperparathyroidism: NO Adrenal Insufficiency: NO MEDICATIONS: Thyroid Medications: YES, SYNTHROID, FOR ABOUT 5 YRS Additional Medications: BP MEDS, EFFEXOR AND WELLBUTRIN, METFORMIN, STATIN FOR CHOLESTEROL, Additional History: HYPERTENSION, DIABETIC, CHOLESTEROL, EARLY BRE EXAM MEASUREMENTS: Bone mineral densitometry was performed using the [employer]. Bone mineral density as measured about the Lumbar spine is: ----- L1-L4(G/cm2): 1.208 T Score Values are as follows: ----- L1: -0.1 ----- L2: 0.4 ----- L3: 1.0 ----- L4: -0.4 ----- L1-L4: 0.2 Bone mineral density FIRST DEXA SCAN.......BASELINE STUDY Bone mineral density about the R hip (g/cm2): 1.098 Bone mineral density about the L hip (g/cm2): 1.084 T Score values are as follows: -----R Neck: -0.6 -----L Neck: -0.5 -----R Total: 0.7 -----L Total: 0.6 Bone mineral density BASELINE STUDY FRAX%S: THERE IS A 4.4% CHANCE FOR A MAJOR OSTEOPOROTIC FX AND A 0.2% FOR HIP.....PROBABILITY FOR F X IN 10 YRS TIME IMPRESSION: No evidence for osteoporosis or osteopenia. NOTE: T-SCORE=SD OF THE YOUNG ADULT MEAN.
--- NOTE | 2019-04-06 12:11 | MM ---
Reason for exam: screening (asymptomatic). Last mammogram was performed 1 year and 2 months ago. History: Patient is postmenopausal. Implant in the left breast, 1983. Reduction of the right breast. Took hormonal contraceptives for 15 years beginning at age 18. Physical Findings: A clinical breast exam by your physician is recommended on an annual basis and results should be correlated with mammographic findings. MG Screening Mammo Implant/CAD Bilateral CC and MLO view(s) were taken. ID view(s) were taken of the left breast. Prior study comparison: February 14, 2018, bilateral MG screening mammo implant/CAD. February 10, 2017, bilateral MG screening mammo implant/CAD. There are scattered fibroglandular densities. Benign appearing calcifications in the right breast. No suspicious abnormality. Left retropectoral implant. No significant changes when compared with prior studies. ASSESSMENT: Benign, BI-RAD 2 RECOMMENDATION: Routine screening mammogram of both breasts in 1 year.
== END | disposition home or self-care (01) ==
LOC: RADMAMWWP 07:45
PROVIDERS: ATTEND Obstetrics & Gynecology
DX: Z12.31 Encounter for screening mammogram for malignant neoplasm of breast (principal); Z78.0 Asymptomatic menopausal state
CPT/HCPCS: 77067; 77080

== ENCOUNTER → 2020-06-05 | Outpatient (CLI) | payer BC ==
--- NOTE | 2020-06-06 11:45 | MM ---
Reason for exam: screening (asymptomatic). Last mammogram was performed 1 year and 2 months ago. History: Patient is postmenopausal. Implant in the left breast, 1983. Reduction of the right breast. Took hormonal contraceptives for 15 years beginning at age 18. Physical Findings: A clinical breast exam by your physician is recommended on an annual basis and results should be correlated with mammographic findings. MG Screening Mammo Implant/CAD Bilateral CC and MLO view(s) were taken. ID view(s) were taken of the left breast. Prior study comparison: April 05, 2019, bilateral MG screening mammo implant/CAD. February 14, 2018, bilateral MG screening mammo implant/CAD. Stable benign calcifications. Left sided implant is intact. ASSESSMENT: Benign, BI-RAD 2 RECOMMENDATION: Routine screening mammogram of both breasts in 1 year.
== END | disposition home or self-care (01) ==
LOC: RADMAMWWP 07:00
PROVIDERS: ATTEND Obstetrics & Gynecology
DX: Z12.31 Encounter for screening mammogram for malignant neoplasm of breast (principal)
CPT/HCPCS: 77067

== ENCOUNTER → 2020-11-15 | Outpatient (CLI) | payer BC ==
[2020-11-15 12:39] LABS: African American GFR (CKD) 113.8 (60.0-200.0); Albumin 4.8 g/dL (3.80-4.90); Albumin/Globulin Ratio 1.85 (1.60-3.17); Anion Gap 3.8 mmol/L (4.00-12.00); BUN/Creat Ratio 24.29 Ratio (12.00-20.00); Calcium 10.6 mg/dL (8.7-10.3); Carbon Dioxide 31.2 mmol/L (21.6-31.8); Chol/HDL Ratio 2.71; Globulin 2.6 g/dL (1.6-3.3); LDL Cholesterol,Calculated 84.4 mg/dL (0.0-131.0); Non-African American GFR(CKD) 98.2 (60.0-200.0); Total Bilirubin 0.5 mg/dL (0.2-1.2); Total Protein 7.4 g/dL (6.2-8.2); VLDL Calculation 14.6 mg/dL (5.00-40.00)
[2020-11-15 12:47] LABS: HCT 45.8 % (37.2-46.3); HGB 14.5 g/dL (12.0-15.0); MCH 31.3 pg (27.0-32.0); MCHC 31.7 g/dL (32.0-37.0); MCV 98.7 fL (80.0-97.0); Platelet Count 345 X 10*3/uL (140-440); RBC 4.64 X 10*6/uL (4.10-5.20); RDW 13.6 % (11.5-14.5); WBC 7.35 X 10*3/uL (4.50-10.00)
[2020-11-15 14:31] LABS: T4, Free (Free Thyroxine) 1.1 ng/dL (0.80-1.80)
== END | disposition home or self-care (01) ==
LOC: LABWHC1 08:13
PROVIDERS: ATTEND Physician Assistant Medical
DX: E78.2 Mixed hyperlipidemia (principal); E55.9 Vitamin D deficiency, unspecified; E03.9 Hypothyroidism, unspecified; F41.1 Generalized anxiety disorder; I73.9 Peripheral vascular disease, unspecified; I10 Essential (primary) hypertension
CPT/HCPCS: 36415; 80053; 80061; 82306; 82550; 84439; 84443; 85027

== ENCOUNTER → 2021-06-25 | Outpatient (CLI) | payer BC ==
--- NOTE | 2021-06-26 14:42 | MM ---
Reason for exam: screening (asymptomatic). Last mammogram was performed 1 year and 1 month ago. History: Patient is postmenopausal. Implant in the left breast, 1983. Reduction of the right breast. Took hormonal contraceptives for 15 years beginning at age 18. Physical Findings: A clinical breast exam by your physician is recommended on an annual basis and results should be correlated with mammographic findings. MG Screening Mammo Implant/CAD Bilateral CC and MLO view(s) were taken. ID view(s) were taken of the left breast. Prior study comparison: June 05, 2020, bilateral MG screening mammo implant/CAD. April 05, 2019, bilateral MG screening mammo implant/CAD. Left breast prothesis. No significant changes when compared with prior studies. ASSESSMENT: Benign, BI-RAD 2 RECOMMENDATION: Routine screening mammogram of both breasts in 1 year.
== END | disposition home or self-care (01) ==
LOC: RADMAMWWP 07:01
PROVIDERS: ATTEND Obstetrics & Gynecology
DX: Z12.31 Encounter for screening mammogram for malignant neoplasm of breast (principal); Z78.0 Asymptomatic menopausal state
CPT/HCPCS: 77067

== ENCOUNTER → 2022-02-05 | Outpatient (CLI) | payer BC ==
[2022-02-05 10:42] LABS: Basophils # (A) 0.03 X 10*3/uL (0.00-0.10); Basophils % (A) 0.5 %; Eosinophils # (A) 0.01 X 10*3/uL (0.04-0.35); Eosinophils % (A) 0.2 %; HCT 42.4 % (37.2-46.3); HGB 13.8 g/dL (12.0-15.0); Immature Grans, Automated 0.2 %; Lymphocytes # (A) 1.34 X 10*3/uL (0.90-5.00); Lymphocytes % (A) 20.6 %; MCH 31.4 pg (27.0-32.0); MCHC 32.5 g/dL (32.0-37.0); MCV 96.6 fL (80.0-97.0); Monocytes # (A) 0.45 X 10*3/uL (0.20-1.00); Monocytes % (A) 6.9 %; NRBC Per 100 WBC 0 /100 WBCS (0.0-0.0); Neutrophils # (A) 4.66 X 10*3/uL (1.80-7.70); Neutrophils % (A) 71.6 %; Platelet Count 308 X 10*3/uL (140-440); RBC 4.39 X 10*6/uL (4.10-5.20); RDW 13.6 % (11.5-14.5)
[2022-02-05 10:58] LABS: ALT 17 U/L (8-44); AST 15 U/L (13-35); African American GFR (CKD) 118.9 (60.0-200.0); Albumin 4.3 g/dL (3.8-4.9); Albumin/Globulin Ratio 1.87 (1.60-3.17); Alkaline Phosphatase 86 U/L (41-126); BUN/Creat Ratio 18.17 Ratio (12.00-20.00); Blood Urea Nitrogen 10.9 mg/dL (9.0-27.0); Calcium 9.7 mg/dL (8.7-10.3); Carbon Dioxide 27.7 mmol/L (20.0-27.5); Chloride 104 mmol/L (96-109); Chol/HDL Ratio 2.77 Ratio; Globulin 2.3 g/dL (1.6-3.3); Glucose 93 mg/dL (70-110); LDL Cholesterol,Calculated 88.8 mg/dL (0.0-131.0); Non-African American GFR(CKD) 102.6 (60.0-200.0); Potassium 4.8 mmol/L (3.5-5.5); Sodium 141 mmol/L (135-145); Total Protein 6.6 g/dL (6.2-8.2); VLDL Calculation 11.64 mg/dL (5.00-40.00)
== END | disposition home or self-care (01) ==
LOC: LABWHC1 07:40
PROVIDERS: ATTEND Physician Assistant
DX: I10 Essential (primary) hypertension (principal); F41.1 Generalized anxiety disorder; E78.2 Mixed hyperlipidemia; E55.9 Vitamin D deficiency, unspecified; E03.9 Hypothyroidism, unspecified; E11.9 Type 2 diabetes mellitus without complications
CPT/HCPCS: 36415; 80053; 80061; 82306; 84443; 85025

== ENCOUNTER → 2022-08-14 | Outpatient (CLI) | payer BC ==
[2022-08-14 23:49] LABS: Basophils # (A) 0.03 X 10*3/uL (0.00-0.10); Basophils % (A) 0.4 %; Eosinophils # (A) 0 X 10*3/uL (0.04-0.35); Eosinophils % (A) 0 %; HCT 48.3 % (37.2-46.3); HGB 14.8 g/dL (12.0-15.0); Immature Grans, Automated 0.3 %; Lymphocytes # (A) 1.73 X 10*3/uL (0.90-5.00); Lymphocytes % (A) 23.6 %; MCH 30.6 pg (27.0-32.0); MCHC 30.6 g/dL (32.0-37.0); Mean Platelet Volume 10.2 fL (9.5-12.2); Monocytes # (A) 0.46 X 10*3/uL (0.20-1.00); Monocytes % (A) 6.3 %; NRBC Per 100 WBC 0 /100 WBCS (0.0-0.0); Neutrophils # (A) 5.09 X 10*3/uL (1.80-7.70); Neutrophils % (A) 69.4 %; Platelet Count 336 X 10*3/uL (140-440); RBC 4.83 X 10*6/uL (4.10-5.20); RDW 13.7 % (11.5-14.5); WBC 7.33 X 10*3/uL (4.50-10.00)
[2022-08-15 08:39] LABS: ALT 23 U/L (8-44); AST 17 U/L (13-35); African American GFR (CKD) 109.1 (60.0-200.0); Albumin 4.7 g/dL (3.8-4.9); Albumin/Globulin Ratio 1.96 (1.60-3.17); Alkaline Phosphatase 95 U/L (41-126); BUN/Creat Ratio 14.09 Ratio (12.00-20.00); Blood Urea Nitrogen 10.1 mg/dL (9.0-27.0); Calcium 10.8 mg/dL (8.7-10.3); Carbon Dioxide 27.8 mmol/L (20.0-27.5); Chloride 105 mmol/L (96-109); Chol/HDL Ratio 2.95 Ratio; Globulin 2.4 g/dL (1.6-3.3); Glucose 94 mg/dL (70-110); LDL Cholesterol,Calculated 110.7 mg/dL (0.0-131.0); Non-African American GFR(CKD) 94.1 (60.0-200.0); Potassium 4.6 mmol/L (3.5-5.5); Sodium 144 mmol/L (135-145); Total Protein 7.1 g/dL (6.2-8.2)
== END | disposition home or self-care (01) ==
LOC: LABWHC1 10:07
PROVIDERS: ATTEND Physician Assistant
DX: E78.2 Mixed hyperlipidemia (principal); I10 Essential (primary) hypertension; F41.1 Generalized anxiety disorder; E55.9 Vitamin D deficiency, unspecified; E03.9 Hypothyroidism, unspecified; E11.9 Type 2 diabetes mellitus without complications
CPT/HCPCS: 36415; 80053; 80061; 82306; 83036; 84439; 84443; 85025

== ENCOUNTER → 2023-02-01 | Outpatient (CLI) | payer BC ==
--- NOTE | 2023-02-02 09:27 | MM ---
Reason for Exam: Screening (asymptomatic). Last mammogram was performed 1 year(s) and 7 month(s) ago. Patient History: Menarche at age 14. First Full-Term at age 26. Left ovary removed at age 52. Right ovary removed at age 52. Hysterectomy at age 52. Postmenopausal. Hormonal Contraceptives for 15 years from age 18 until age 33. Reduction on the Right side. 1984, Implant on the left side. Risk Values: Maria Antonia 5 year model risk: 1.4%. NCI Lifetime model risk: 8.9%. Prior Study Comparison: 04/05/2019 Bilateral Screening Mammogram, [facility]. 06/05/2020 Bilateral Screening Mammogram, [facility]. 06/25/2021 Bilateral Screening Mammogram, [facility]. Tissue Density: The breast tissue is heterogeneously dense. This may lower the sensitivity of mammography. Findings: Analyzed By CAD. There is no suspicious group of microcalcifications or new suspicious mass in either breast. Overall Assessment: Benign, BI-RAD 2 Management: Screening Mammogram of both breasts in 1 year. . Patient should continue monthly self-breast exams. A clinical breast exam by your physician is recommended on an annual basis. This exam should not preclude additional follow-up of suspicious palpable abnormalities. Note on Maria Antonia scores and lifetime risk: 1. A Maria Antonia score greater than 3% is considered moderate risk. If this is the case, consider specialist referral to assess eligibility for a risk reducing agent. 2. If overall lifetime risk for the development of breast cancer is 20% or higher, the patient may qualify for future screening with alternating mammogram and breast MRI. Electronically signed and approved by: Jesus Padron M.D. Radiologis
== END | disposition home or self-care (01) ==
LOC: RADMAMWWP 06:45
PROVIDERS: ATTEND Obstetrics & Gynecology
DX: Z12.31 Encounter for screening mammogram for malignant neoplasm of breast (principal); Z78.0 Asymptomatic menopausal state; Z98.82 Breast implant status
CPT/HCPCS: 77063; 77067

== ENCOUNTER → 2023-03-01 | Outpatient (CLI) | payer BC ==
[2023-03-01 10:47] LABS: Basophils # (A) 0.04 X 10*3/uL (0.00-0.10); Basophils % (A) 0.5 %; Eosinophils # (A) 0.01 X 10*3/uL (0.04-0.35); Eosinophils % (A) 0.1 %; HCT 45.1 % (37.2-46.3); Lymphocytes # (A) 1.39 X 10*3/uL (0.90-5.00); Lymphocytes % (A) 19.1 %; MCH 30.7 pg (27.0-32.0); MCV 98.9 FL (80.0-97.0); Mean Platelet Volume 10.3 FL (9.5-12.2); Monocytes # (A) 0.41 X 10*3/uL (0.20-1.00); Monocytes % (A) 5.6 %; NRBC Per 100 WBC 0 X 10*3/uL (0.00-0.01); Neutrophils # (A) 5.42 X 10*3/uL (1.80-7.70); Neutrophils % (A) 74.4 %; Platelet Count 319 X 10*3/uL (140-440); RBC 4.56 X 10*6/uL (4.10-5.20); RDW 13.4 % (11.5-14.5); WBC 7.29 X 10*3/uL (4.50-10.00)
[2023-03-01 11:31] LABS: Microalbumin Creatinine Ratio <8 mg/g Cr (0-30)
[2023-03-01 11:49] LABS: ALT 22 U/L (8-44); AST 15 U/L (13-35); Albumin 4.5 d/dL (3.8-4.9); Albumin/Globulin Ratio 2.14 Ratio (1.60-3.17); Alkaline Phosphatase 93 U/L (41-126); Blood Urea Nitrogen 10.5 mg/dL (9.0-27.0); Carbon Dioxide 27.3 mmol/L (21.6-31.8); Chloride 105 mmol/L (96-109); Chol/HDL Ratio 2.75 Ratio; Creatine Kinase 86 U/L (26-186); Globulin 2.1 d/dL (1.6-3.3); Glucose 105 mg/dL (70-110); LDL Cholesterol,Calculated 86.3 mg/dL (0.0-131.0); Potassium 4.7 mmol/L (3.5-5.5); Sodium 143 mmol/L (135-145); T4, Free (Free Thyroxine) 1.19 ng/dL (0.80-1.80); Total Bilirubin 0.3 mg/dL (0.3-1.2); Total Protein 6.6 d/dL (6.2-8.2); VLDL Calculation 14.32 mg/dL (5.00-40.00)
== END | disposition home or self-care (01) ==
LOC: LABWHC1 06:56
PROVIDERS: ATTEND Family Medicine
DX: I10 Essential (primary) hypertension (principal); F41.1 Generalized anxiety disorder; E55.9 Vitamin D deficiency, unspecified; E03.9 Hypothyroidism, unspecified; E11.9 Type 2 diabetes mellitus without complications; E78.2 Mixed hyperlipidemia
CPT/HCPCS: 36415; 80053; 80061; 82043; 82306; 82550; 82570; 84439; 84443; 85025

== ENCOUNTER → 2023-06-03 | Outpatient (CLI) | payer BC ==
--- NOTE | 2023-06-03 08:20 | CTL ---
EXAMINATION TYPE: CT Low Dose Lung DATE OF EXAM: 06/03/2023 8:00 AM CLINICAL INDICATION:Female, 57 years old with history of Z12.2 LUNG CA SCREEN Z87.891 HX NICOTINE DEP ENDEN; Personal history of nicotine dependence, Lung cancer screening , history of tobacco use. COMPARISON: 11/06/2017.. TECHNIQUE: Multiple axial non-contrast scans were obtained from approximately the lung apices through the upper abdomen. Coronal and sagittal reformatted images were obtained. Low dose technique was uti lized. CT DLP: 106.20 mGycm, Automated exposure control for dose reduction was used. CT Contrast: Contrast used: None Oral contrast used: None FINDINGS: ======== Lack of intravenous contrast and low dose technique limits the evaluation of the vascular and soft ti ssue structures. LUNGS: No evidence of pulmonary fibrosis. No evidence of focal consolidation, pneumothorax or pleural effusion. Centrilobular emphysema changes. Nodules: RUL: 8 mm series 3 image 71,r 3 mm image 101 RML: None. RLL: None MEGAN: 3 mm series 3 image 71, 3 mm image 59 LLL: None. AIRWAY: Patent and unremarkable. HEART: Size within normal limits. Moderate to severe coronary artery atherosclerosis. MEDIASTINUM: No gross evidence of adenopathy. VASCULATURE: No aortic aneurysm. MUSCULOSKELETAL: No acute osseous abnormalities SOFT TISSUES/LYMPH NODES: Left breast implant appears intact. LOWER NECK: No significant findings. UPPER ABDOMEN: Bilateral adrenal nodule most compatible with lipid rich adrenal adenomas by Hounsfiel d units measuring -2 Hounsfield units on the right and -11 Hounsfield units on the left. Mildly incre ased in size from 2018r now measuring 20 mm on the right and 20 mm on the left. IMPRESSION: Scattered pulmonary nodules, the largest of which is in the right upper lung measuring 8 mm in larges t dimension at baseline. Mild emphysema. CT LUNG RAD AND CT CHEST RECOMMENDATION: Lung-Rad 3 Probably Benign: 6 month follow-up LDCT. S Modifier (other clinically significant findings): None Recommend smoking cessation (if current smoker), or continuation of smoking cessation (if prior smoke r). Annual screening for lung cancer with low-dose computed tomography is recommended in adults ages 55 to 77 years who have a 30 pack-year smoking history and currently smoke or have quit within the pa st 15 years. Screening should be discontinued once a person has not smoked for 15 years or develops a health problem that substantially limits life expectancy or the ability or willingness to have curat karol lung surgery. Lung rads 2021 [email or web address]
== END | disposition home or self-care (01) ==
LOC: RADCTMAIN 07:27
PROVIDERS: ATTEND Family Medicine
DX: Z12.2 Encounter for screening for malignant neoplasm of respiratory organs (principal); Z87.891 Personal history of nicotine dependence
CPT/HCPCS: 71271

== ENCOUNTER → 2024-01-26 | Outpatient (CLI) | payer BC ==
[2024-01-26 10:45] LABS: Microalbumin Creatinine Ratio <13 mg/g Cr (0-30); Urine Creatinine 89.4 mg/dL (28.0-217.0)
[2024-01-26 10:46] LABS: Basophils # (A) 0.02 X 10*3/uL (0.00-0.10); Basophils % (A) 0.2 %; Eosinophils # (A) 0.01 X 10*3/uL (0.04-0.35); Eosinophils % (A) 0.1 %; HGB 14.1 g/dL (12.0-15.0); Lymphocytes # (A) 1.42 X 10*3/uL (0.90-5.00); Lymphocytes % (A) 16.3 %; MCH 31.5 pg (27.0-32.0); MCV 98.4 FL (80.0-97.0); Mean Platelet Volume 10.1 FL (9.5-12.2); Monocytes # (A) 0.57 X 10*3/uL (0.20-1.00); Monocytes % (A) 6.5 %; NRBC Per 100 WBC 0 X 10*3/uL (0.00-0.01); Neutrophils # (A) 6.65 X 10*3/uL (1.80-7.70); Neutrophils % (A) 76.4 %; Platelet Count 292 X 10*3/uL (140-440); RBC 4.47 X 10*6/uL (4.10-5.20); RDW 13.3 % (11.5-14.5); WBC 8.71 X 10*3/uL (4.50-10.00)
[2024-01-26 11:04] LABS: ALT 25 U/L (8-44); AST 19 U/L (13-35); Albumin 4.4 g/dL (3.8-4.9); Alkaline Phosphatase 101 U/L (41-126); BUN/Creat Ratio 18.57 Ratio (12.00-20.00); Calcium 10.3 mg/dL (8.7-10.3); Carbon Dioxide 25.5 mmol/L (21.6-31.8); Chloride 104 mmol/L (96-109); Chol/HDL Ratio 2.94 Ratio; Creatine Kinase 60 U/L (26-186); Globulin 2.1 g/dL (1.6-3.3); Glucose 123 mg/dL (70-110); LDL Cholesterol,Calculated 81.8 mg/dL (0.0-131.0); Sodium 141 mmol/L (135-145); T4, Free (Free Thyroxine) 1.13 ng/dL (0.80-1.80); Total Bilirubin 0.4 mg/dL (0.3-1.2); Total Protein 6.5 g/dL (6.2-8.2); VLDL Calculation 17.88 mg/dL (5.00-40.00)
== END | disposition home or self-care (01) ==
LOC: LABWHC1 06:53
PROVIDERS: ATTEND Physician Assistant Medical
DX: I10 Essential (primary) hypertension (principal); E03.9 Hypothyroidism, unspecified; E78.2 Mixed hyperlipidemia; E11.9 Type 2 diabetes mellitus without complications; E55.9 Vitamin D deficiency, unspecified; Z79.899 Other long term (current) drug therapy
CPT/HCPCS: 36415; 80053; 80061; 82043; 82306; 82550; 82570; 84439; 84443; 85025

== ENCOUNTER → 2024-07-16 | Outpatient (CLI) | payer BC ==
--- NOTE | 2024-07-16 14:39 | MM ---
Reason for Exam: Screening (asymptomatic). Last mammogram was performed 1 year(s) and 5 month(s) ago. Patient History: Menarche at age 14. First Full-Term at age 26. Left ovary removed at age 52. Right ovary removed at age 52. Hysterectomy at age 52. Postmenopausal. Hormonal Contraceptives for 15 years from age 18 until age 33. Reduction on the Right side. 1984, Implant on the left side. Risk Values: Maria Antonia 5 year model risk: 1.4%. NCI Lifetime model risk: 8.7%. Prior Study Comparison: 06/05/2020 Bilateral Screening Mammogram, [facility]. 06/25/2021 Bilateral Screening Mammogram, [facility]. 02/01/2023 Bilateral MG 3D screen mammo imp/cad., [facility]. Tissue Density: There are scattered areas of fibroglandular density. Findings: Analyzed By CAD. There is no suspicious group of microcalcifications or new suspicious mass in either breast. Left breast implant surgery. Benign-appearing calcifications. Stable appearing lymph nodes. Overall Assessment: Benign, BI-RAD 2 Management: Screening Mammogram of both breasts in 1 year. . Patient should continue monthly self-breast exams. A clinical breast exam by your physician is recommended on an annual basis. This exam should not preclude additional follow-up of suspicious palpable abnormalities. Note on Maria Antonia scores and lifetime risk: 1. A Maria Antonia score greater than 3% is considered moderate risk. If this is the case, consider specialist referral to assess eligibility for a risk reducing agent. 2. If overall lifetime risk for the development of breast cancer is 20% or higher, the patient may qualify for future screening with alternating mammogram and breast MRI. [facility], , 07/16/2024 2:36 PM. Electronically signed and approved by: Kai Posada M.D. Radiologis
== END | disposition home or self-care (01) ==
LOC: RADMAMWWP 13:37
PROVIDERS: ATTEND Family Medicine
DX: Z12.31 Encounter for screening mammogram for malignant neoplasm of breast (principal); R92.323 Mammographic fibroglandular density, bilateral breasts; Z78.0 Asymptomatic menopausal state; Z92.0 Personal history of contraception
CPT/HCPCS: 77067

== ENCOUNTER → 2024-10-09 | Outpatient (CLI) | payer BC ==
[2024-10-09 10:17] LABS: Basophils # (A) 0.03 X 10*3/uL (0.00-0.10); Basophils % (A) 0.4 %; Eosinophils # (A) 0.02 X 10*3/uL (0.04-0.35); Eosinophils % (A) 0.3 %; HCT 44.6 % (37.2-46.3); HGB 13.9 g/dL (12.0-15.0); Lymphocytes # (A) 1.56 X 10*3/uL (0.90-5.00); Lymphocytes % (A) 21.4 %; MCH 30.2 pg (27.0-32.0); MCHC 31.2 g/dL (32.0-37.0); Monocytes # (A) 0.53 X 10*3/uL (0.20-1.00); Monocytes % (A) 7.3 %; NRBC Per 100 WBC 0 X 10*3/uL (0.00-0.01); Neutrophils # (A) 5.11 X 10*3/uL (1.80-7.70); Neutrophils % (A) 70.2 %; Platelet Count 344 X 10*3/uL (140-440); RDW 13.3 % (11.5-14.5); WBC 7.28 X 10*3/uL (4.50-10.00)
[2024-10-09 10:54] LABS: Chol/HDL Ratio 2.71 Ratio; Creatine Kinase 65 U/L (26-186); LDL Cholesterol,Calculated 71.7 mg/dL (0.0-131.0)
[2024-10-09 10:55] LABS: ALT 33 U/L (8-44); AST 23 U/L (13-35); Albumin 4.5 g/dL (3.8-4.9); Alkaline Phosphatase 102 U/L (41-126); BUN/Creat Ratio 13.86 Ratio (12.00-20.00); Blood Urea Nitrogen 9.7 mg/dL (9.0-27.0); Calcium 10.5 mg/dL (8.7-10.3); Carbon Dioxide 25.7 mmol/L (21.6-31.8); Chloride 104 mmol/L (96-109); Globulin 2.5 g/dL (1.6-3.3); Glucose 135 mg/dL (70-110); Potassium 4.9 mmol/L (3.5-5.5); Sodium 142 mmol/L (135-145); T4, Free (Free Thyroxine) 1.27 ng/dL (0.80-1.80); Total Bilirubin 0.5 mg/dL (0.3-1.2)
== END | disposition home or self-care (01) ==
LOC: LABWHC1 07:26
PROVIDERS: ATTEND Physician Assistant
DX: I10 Essential (primary) hypertension (principal); E78.2 Mixed hyperlipidemia; E55.9 Vitamin D deficiency, unspecified; E03.9 Hypothyroidism, unspecified; E11.9 Type 2 diabetes mellitus without complications; E11.59 Type 2 diabetes mellitus with other circulatory complications; Z79.899 Other long term (current) drug therapy; F41.1 Generalized anxiety disorder; I73.9 Peripheral vascular disease, unspecified
CPT/HCPCS: 36415; 80053; 80061; 82043; 82306; 82550; 82570; 84439; 84443; 85025

== ENCOUNTER → 2024-11-10 | Outpatient (CLI) | payer BC ==
[2024-11-12 12:28] LABS: Alternaria alternata IgE <0.10 kU/L; Aspergillus fumagatus IgE <0.10 kU/L; Cat Epith & Dander IgE <0.10 kU/L; Cladosporian herbarum IgE <0.10 kU/L; Dermato. farinae IgE <0.10 kU/L; Oak IgE <0.10 kU/L; Ragweed,Common IgE <0.10 kU/L; Red Top (Bentgrass) IgE <0.10 kU/L; Walnut IgE (Food) <0.10 kU/L
[2024-11-13 14:14] LABS: Alt. alternata IgE Class CLASS 0; Alternaria alternata IgE <0.10 kU/L (<0.10); Asperg. fumagatus IgE <0.10 kU/L (<0.10); Asperg. fumagatus IgE Class CLASS 0; Birch(Com.Silvr) IgE <0.10 kU/L (<0.10); Birch(Com.Silvr) IgE Class CLASS 0; Cat Epith & Dander IgE <0.10 kU/L (<0.10); Cat Epith & Dander IgE Class CLASS 0; Clad herbarum IgE <0.10 kU/L (<0.10); Clad herbarum IgE Class CLASS 0; Dermato. Pteronyssinus Class CLASS 0; Dermato. Pteronyssinus IgE <0.10 kU/L (<0.10); Dermato. farinae IgE <0.10 kU/L (<0.10); Dermato. farinae IgE Class CLASS 0; IgE (Allergen) 14.8 IU/mL (<114.0); Maple (Box Elder) IgE Class CLASS 0; Mountain Cedar IgE Class CLASS 0; Mouse Urine IgE Class CLASS 0; Mouse Urine Proteins,IgE <0.10 kU/L (<0.10); Nettle IgE Class CLASS 0; Penicillium chrysogenum IgE <0.10 kU/L (<0.10); Penicillium chrysogenum IgE Cl CLASS 0; Rough Marshelder IgE <0.10 kU/L (<0.10); Rough Marshelder IgE Class CLASS 0; Timothy Grass IgE Class CLASS 0; White Ash IgE Class CLASS 0
== END | disposition home or self-care (01) ==
LOC: LABWHC1 09:30
PROVIDERS: ATTEND Otolaryngology Otolaryngology/Facial Plastic Surgery
DX: J31.0 Chronic rhinitis (principal)
CPT/HCPCS: 36415; 82785; 86003